=== PATIENT | male | born 2000 | race Caucasian/White ===

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

== ENCOUNTER 2022-11-23 13:18 | Outpatient (CLI) | payer OTHER, SELFPAY ==
--- NOTE | ~2022-11-23 | XR_ITS ---
EXAMINATION: XR thoracic spine 2V DATE: 11/23/2022 13:40 INDICATION: Right arm numbness TECHNIQUE: Two views of the thoracic spine are obtained. COMPARISON: 01/10/2012 FINDINGS: There are 15 degrees thoracic dextroscoliosis. Bone alignment is normal. There is no fractu re. The vertebral body heights and intervertebral disc spaces are maintained. IMPRESSION: 1. No acute osseous abnormality. 15 degrees of thoracic dextroscoliosis. Reviewed, dictated and finalized at location A.
--- NOTE | ~2022-11-23 | XR_ITS ---
[id number] 11/23/2022 13:41 Indication: Neck pain Procedure: 2 views cervical spine Comparison: No prior studies for comparison. Findings: Mild disc narrowing at C6-7. There is straightening of cervical lordosis. No prevertebral s oft tissue swelling. Vertebral body heights are maintained. Lung apices are normal. Odontoid process is not well visualized. Impression: 1: Mild cervical spondylosis with straightening of cervical lordosis, possibly due to muscle spasm. Reviewed, dictated and finalized at location [] Impression: 1: Mild cervical spondylosis with straightening of cervical lordosis, possibly due to muscle spasm.
== END 2022-11-23 13:19 | disposition home or self-care (01) ==
PROVIDERS: PCP Family Medicine; Visit Provider Physician Assistant Medical
DX: M41.84 Other forms of scoliosis, thoracic region (principal); M47.812 Spondylosis without myelopathy or radiculopathy, cervical region
CPT/HCPCS: 72040; 72070